=== PATIENT | male | born 1980 | race Caucasian/White ===

== ENCOUNTER 2017-09-03 18:19 | Emergency (ER) | payer OTHER ==
[2017-09-03 18:32] VITALS: RESP 16
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
[2017-09-03 20:14] VITALS: BP 142/106; PULSE 66; TEMP 98.6; O2SAT 97
== END 2017-09-03 20:14 | disposition home or self-care (01) ==
DX: S39.012A Strain of muscle, fascia and tendon of lower back, initial encounter (principal); I10 Essential (primary) hypertension; V89.2XXA Person injured in unspecified motor-vehicle accident, traffic, initial encounter; Y92.410 Unspecified street and highway as the place of occurrence of the external cause